=== PATIENT | female | born 1980 | race Caucasian/White ===

== ENCOUNTER 2017-07-02 09:06 | Emergency (ER) | payer BC ==
--- NOTE | 2017-07-02 10:04 | Emergency Department Record ---
History of Present Illness - General Chief Complaint: Neck Injury/Pain Stated Complaint: NECK PAIN Time Seen by Provider: 07/02/17 09:49 Source: Patient, RN notes reviewed Mode of Arrival: Ambulatory - History of Present Illness Initial Comments: neck pain which started 3 days ago and she took flexeril and ibuprofen and tylenol. No relief. patient has a cough and congestion for two weeks and slightly better. MD Complaint: Neck pain Onset/Timin -: Days(s) Place: Home Radiation: Left shoulder Severity: Moderate Severity scale (1-10): 5 Quality: Aching Consistency: Constant, Getting worse Improves With: None Worsens With: None Associated Symptoms: None Treatments Prior to Arrival: Prescription pain med Treatment Prior to Arrival Comment:: flexaril - Related Data Previous Rx's Medication Instructions Recorded Azithromycin 250 mg PO DAILY #6 tablet 07/02/17 Hydrocodone/Acetaminophen [Sargeant 1 each PO Q6HR #20 tablet 07/02/17 5-325 Tablet] Naproxen [Naprosyn] 500 mg PO Q12H #30 tab.dr 07/02/17 Tizanidine HCl [Zanaflex] 4 mg PO BID #60 capsule 07/02/17 Allergies Allergy/AdvReac Type Severity Reaction Status Date / Time Sulfa (Sulfonamide Allergy Intermediate HIVES Verified 07/02/17 09:46 Antibiotics) Penicillins Allergy HIVES Verified 07/02/17 09:46 sulfamethoxazole Allergy HIVES Verified 07/02/17 09:46 [From Bactrim] trimethoprim [From Bactrim] Allergy HIVES Verified 07/02/17 09:46 Travel Screening - Travel/Exposure Within Last 30 Days Have you traveled within the last 30 days?: No - Travel/Exposure Within Last Year Have you traveled outside the [place] in the last year?: No - Additonal Travel Details Have you been exposed to anyone with a communicable illness?: No - Travel Symptoms Symptom Screening: None Past Medical History - SOCIAL HISTORY Smoking Status: Current every day smoker Alcohol Use: None Drug Use: None - RESPIRATORY Hx Respiratory Disorders: No - CARDIOVASCULAR Hx Cardio Disorders: No - NEURO Hx Neuro Disorders: No - GI Hx GI Disorders: No - Hx Genitourinary Disorders: No - ENDOCRINE Hx Endocrine Disorders: Yes Hx Thyroid Disease: Yes (low) - MUSCULOSKELETAL Hx Musculoskeletal Disorders: No - PSYCH Hx Psych Problems: Yes Hx Anxiety: Yes Hx Depression: Yes - HEMATOLOGY/ONCOLOGY Hx Hematology/Oncology Disorders: No Family Medical History Any Significant Family History?: Yes Family Hx Comment (NOT TO BE USED IN PLACE OF ITEMS BELOW): sister w/ ovarian cysts, thyroid issues Hx Heart Disease: Father, Mother, Brother/Sister Hx HTN: Father, Mother Hx Kidney Disease: Father Course Vital Signs 07/02/17 09:47 Temperature 98.2 F Pulse Rate 76 Respiratory 20 Rate Blood Pressure 137/76 Pulse Ox 97 Disposition Clinical Impression: Cervical strain, acute Qualifiers: Encounter type: initial encounter Qualified Code(s): S16.1XXA - Strain of muscle, fascia and tendon at neck level, initial encounter Sinusitis Qualifiers: Sinusitis location: unspecified location Chronicity: acute Recurrence: non- recurrent Qualified Code(s): J01.90 - Acute sinusitis, unspecified Disposition: Home, Self-Care Condition: (1) Good Instructions: Cervical Sprain (ED), Sinusitis (ED) Additional Instructions: follow up with Family PrACTICE IN ONE WEEK. fluids and heat on neck three times a week Prescriptions: Hydrocodone/Acetaminophen [Sargeant 5-325 Tablet] 1 each PO Q6HR #20 tablet Azithromycin 250 mg PO DAILY #6 tablet Naproxen [Naprosyn] 500 mg PO Q12H #30 tab. Tizanidine HCl [Zanaflex] 4 mg PO BID #60 capsule Forms: Patient Portal Access Time of Disposition: 10:10 Quality - Quality Measures Quality Measures: N/A - Blood Pressure Screening Does Patient Have Any of the Following: No Blood Pressure Classification: Pre-Hypertensive BP Reading Systolic Measurement: 137 Diastolic Measurement: 76 Screening for High Blood Pressure: < Pre-Hypertensive BP, F/U Documented > [ G8950] Pre-Hypertensive Follow-up Interventions: Referral to alternative/primary care provider.
== END 2017-07-02 10:25 | disposition home or self-care (01) ==
LOC: ER 09:06
DX: S16.1XXA Strain of muscle, fascia and tendon at neck level, initial encounter (principal); J01.90 Acute sinusitis, unspecified; R05 Cough; X58.XXXA Exposure to other specified factors, initial encounter; Y92.009 Unspecified place in unspecified non-institutional (private) residence as the place of occurrence of the external cause; F17.210 Nicotine dependence, cigarettes, uncomplicated
CPT/HCPCS: 99282

== ENCOUNTER 2017-10-03 14:12 | Emergency (ER) | payer BC ==
--- NOTE | 2017-10-03 15:34 | Emergency Department Record ---
History of Present Illness - General Chief complaint: Female Urogenital Problem Stated complaint: UTI,SORE ON ABDOMEN, ELEVATED TEMP Time Seen by Provider: 10/03/17 15:17 Source: Patient Mode of Arrival: Ambulatory Limitations: No limitations - History of Present Illness Initial comments: 37 yo female presents to ED for dysuria symptoms that began this morning, also reports small, painful lesion in the lower abdominal wall that is painful with mild discharge present. Patient denies fevers, chills, or recent illness. Patient reports previous with scar in the area of the painful lesion. Patient denies health problems at his baseline. MD Complaint: Dysuria, Other (skin lesion) Onset/Timin -: Week(s) Severity: Mild Severity scale (1-10): 3 Quality: Aching Consistency: Constant Improves with: None Worsens with: None Patient : No Associated Symptoms: Fever/chills, Nausea/vomiting - Related Data Previous Rx's Medication Instructions Recorded Cephalexin [Keflex] 500 mg PO QID #28 cap 10/03/17 Allergies Allergy/AdvReac Type Severity Reaction Status Date / Time Sulfa (Sulfonamide Allergy Intermediate HIVES Verified 10/03/17 15:11 Antibiotics) Penicillins Allergy HIVES Verified 10/03/17 15:11 sulfamethoxazole Allergy HIVES Verified 10/03/17 15:11 [From Bactrim] trimethoprim [From Bactrim] Allergy HIVES Verified 10/03/17 15:11 Travel Screening - Travel/Exposure Within Last 30 Days Have you traveled within the last 30 days?: No Review of Systems Constitutional: Denies: Chills, Fever, Malaise, Night sweats Eyes: Denies: Eye discharge, Eye pain ENT: Denies: Congestion, Ear pain, Epistaxis Respiratory: Denies: Cough, Dyspnea Cardiovascular: Denies: Chest pain, Dyspnea on exertion Endocrine: Denies: Fatigue, Heat or cold intolerance Gastrointestinal: Denies: Abdominal pain, Nausea, Vomiting Genitourinary: Reports: Dysuria. Denies: Incontinence, Retention Musculoskeletal: Denies: Arthralgia, Back pain, Gout, Joint swelling Skin: Denies: Bruising, Change in color Neurological: Denies: Abnormal gait, Seizure Psychiatric: Denies: Anxiety Hematological/Lymphatic: Denies: Anemia, Blood Clots Past Medical History - SOCIAL HISTORY Smoking Status: Current every day smoker Alcohol Use: None Drug Use: None - RESPIRATORY Hx Respiratory Disorders: No - CARDIOVASCULAR Hx Cardio Disorders: No - NEURO Hx Neuro Disorders: No - GI Hx GI Disorders: No - Hx Genitourinary Disorders: No - ENDOCRINE Hx Endocrine Disorders: Yes Hx Thyroid Disease: Yes (low) - MUSCULOSKELETAL Hx Musculoskeletal Disorders: No - PSYCH Hx Psych Problems: Yes Hx Anxiety: Yes Hx Depression: Yes - HEMATOLOGY/ONCOLOGY Hx Hematology/Oncology Disorders: No Family Medical History Any Significant Family History?: Yes Family Hx Comment (NOT TO BE USED IN PLACE OF ITEMS BELOW): sister w/ ovarian cysts, thyroid issues Hx Heart Disease: Father, Mother, Brother/Sister Hx HTN: Father, Mother Hx Kidney Disease: Father Physical Exam - General General Appearance: Alert, Oriented x3, Cooperative, No acute distress Limitations: No limitations - Head Head exam: Atraumatic, Normocephalic, Normal inspection Head exam detail: negative: Abrasion, Contusion, Amin's sign, General tenderness, Hematoma, Laceration - Eye Eye exam: Normal appearance. negative: Conjunctival injection, Periorbital swelling, Periorbital tenderness, Scleral icterus - ENT Ear exam: negative: Auricular hematoma, Auricular trauma Nasal Exam: negative: Active bleeding, Discharge, Dried blood, Foreign body Mouth exam: negative: Drooling, Laceration, Muffled voice, Tongue elevation - Neck Neck exam: Normal inspection. negative: Meningismus, Tenderness - Respiratory Respiratory exam: Normal lung sounds bilaterally. negative: Chest wall tenderness, Rales, Respiratory distress, Rhonchi, Stridor - Cardiovascular Cardiovascular Exam: Regular rate, Normal rhythm, Normal heart sounds - GI/Abdominal GI/Abdominal exam: Soft. negative: Rebound, Rigid, Tenderness - Rectal Rectal exam: Deferred - exam: Deferred - Extremities Extremities exam: Normal inspection. negative: Calf tenderness, Pedal edema, Tenderness - Back Back exam: Denies: CVA tenderness (R), CVA tenderness (L) - Neurological Neurological exam: Alert, Oriented X3 - Psychiatric Psychiatric exam: Normal affect, Normal mood - Skin Skin exam: Normal color, Other (small lesion in the midline of the patient's c- section scar c/w small stitch abscess). negative: Abrasion Type of lesion: negative: abrasion Course Vital Signs 10/03/17 15:12 Temperature 97.8 F Pulse Rate 77 Respiratory 20 Rate Blood Pressure 135/73 Pulse Ox 97 - Reevaluation(s) Reevaluation #1: 10/03/17 15:32 Patient's 2-week skin lesion appears c/w small stitch abscess, draining spontaneously. Will prescribe Keflex as directed for her skin lesion. Reevaluation #2: 10/03/17 15:50 UA appears negative for infection, and the patient appears stable for discharge at this time on Keflex for her stitch abscess symptoms. Disposition Disposition: Discharge Clinical Impression: Stitch granuloma Qualifiers: Encounter type: initial encounter Qualified Code(s): T81.89XA - Other complications of procedures, not elsewhere classified, initial encounter Disposition: Home, Self-Care Condition: (2) Stable Instructions: Warm Compress or Soak (ED) Additional Instructions: Return to ED if your symptoms worsen or if you have any concerns. Keflex as directed. Follow-up with your family doctor in 3-5 days as directed. Prescriptions: Cephalexin [Keflex] 500 mg PO QID #28 cap Forms: Patient Portal Access Time of Disposition: 15:50 Quality - Quality Measures Quality Measures: N/A - Blood Pressure Screening Does Patient Have Any of the Following: No Blood Pressure Classification: Pre-Hypertensive BP Reading Systolic Measurement: 135 Diastolic Measurement: 73 Screening for High Blood Pressure: < Pre-Hypertensive BP, F/U Documented > [ G8950] Pre-Hypertensive Follow-up Interventions: Referral to alternative/primary care provider.
[2017-10-03 15:41] LABS: URINE APPEARANCE CLEAR; URINE BILIRUBIN NEGATIVE (NEGATIVE); URINE BLOOD TRACE-I (NEGATIVE); URINE COLOR YELLOW; URINE GLUCOSE (UA) NEGATIVE (NEGATIVE); URINE KETONE NEGATIVE (NEGATIVE); URINE LEUKOCYTE ESTERASE NEGATIVE (NEGATIVE); URINE NITRITE NEGATIVE (NEGATIVE); URINE PROTEIN NEGATIVE (NEGATIVE); URINE UROBILINOGEN 0.2 E.U./dL (0.20 - 1.00)
[2017-10-03 15:47] LABS: URINE MUCUS LIGHT; URINE RBC 0 - 2 (NONE SEEN); URINE WBC NONE SEEN (0-2/hpf)
== END 2017-10-03 16:01 | disposition home or self-care (01) ==
LOC: ER 14:12
DX: T81.89XA Other complications of procedures, not elsewhere classified, initial encounter (principal); R30.0 Dysuria; R11.2 Nausea with vomiting, unspecified
CPT/HCPCS: 81001; 99283